=== PATIENT | female | born 1950 | race Caucasian/White ===

== ENCOUNTER → 2016-07-29 | Outpatient (CLI) | payer OTHER ==
--- NOTE | ~2016-07-29 | CR141 ---
[facility] A Service of [facility] & [facility] RADIOLOGY TEXT RESULTS PATIENT: SARA MCKEON I LOCATION: [facility] : 54 UNIT #: [id number] AGE: [address]: ARTI POMPA APRN SEX: F ORDER DR: [id number] [facility] [address] [place], [place] [address] [id number] O MR#: [id number] Acc #: [id number] NAME: SARA MCKEON I. : 1950 SEX: F STUDY DATE/TIME: 07/29/2016 15:45 UNIT: [facility] ROOM: STUDY DESCRIPTION: CR Hand Min 3 Views Lt Attending Physician: French Pompa Aprn Referring Physician: French Pompa Aprn Ordering Physician: French Pompa Aprn Primary Care Physician: August Michel M.D. MEDICAL IMAGING REPORT This report is preliminary unless electronic signature is present EXAM Left hand series, 07/29/16. HISTORY Range of motion, thumb pain. Left hand x-ray, left thumb and limited range of motion. Pain in left thumb area 1 week. FINDINGS AP, lateral and oblique radiographs of the left hand are presented. No traumatic fracture or malalignment. Generalized narrowing of interphalangeal joint spaces. No bony erosive or proliferative changes. No soft tissue defect, subcutaneous air or radiodense foreign body. Dictated by... Sergio Espinal M.D. THIS IS AN ELECTRONICALLY VERIFIED REPORT Sergio Espinal M.D. at 07/30/2016 5:58 PM NICKIE/mini TD: 07/29/2016 21:09 JOB #: [id number] MEDICAL IMAGING REPORT Page 1 of 1 COPY
== END | disposition home or self-care (01) ==
LOC: CRAD 15:26
DX: M79.645 Pain in left finger(s) (principal)
CPT/HCPCS: 73130